=== PATIENT | female | born 1950 | race Caucasian/White ===

== ENCOUNTER 2017-01-01 14:22 | Emergency (ER) | payer MEDICARE, OTHER ==
[2017-01-01 14:31] VITALS: BMI 34.7
--- NOTE | 2017-01-01 15:58 | PDOC ---
History of Present Illness - General Chief Complaint: Lightheaded Stated Complaint: Lightheaded Time Seen by Provider: 01/01/17 15:10 History Source: Patient, Family (Son) Exam Limitations: Language Barrier (Son was translating) - History of Present Illness Initial Comments: 01/01/17 15:50 The patient is a 66F with a PMH of HTN, hyperlipidemia, who presents to the ED with ear pain and dizziness. The patient stated that she had a cold 9 days ago, which she "mostly" recovered from. She had a productive cough with yellow sputum. Her ear pain developed 3 days ago while at home. She describes the ear pain as a fullness/pressure, bilaterally. This morning, she states that she woke up feeling dizzy, almost like she was drunk. She currently feels lightheaded. The patient also complained of chest pain associated with her cough. The CP is substernal, does not radiate, not associated with nausea, sweating, jaw or arm pain. ROS+: cough, sputum production (yellow), ear pain/fullness, photophobia, normal BM ROS-: SOB, fever, chills, vomiting, diarrhea, constipation, dysuria, wheezing, night sweats, weight change, numbness, weakness, tingling, hearing loss, tinnitus PSH: gallbladder removal Allergies: NKDA Social: Does not smoke, drink, or use recreational drugs. Past History - Past Medical History Allergies/Adverse Reactions: Allergies Allergy/AdvReac Type Severity Reaction Status Date / Time No Known Allergies Allergy Verified 01/01/17 14:31 Home Medications: Ambulatory Orders Atenolol [Tenormin -] 100 mg PO DAILY 01/01/17 Clopidogrel Bisulfate [Plavix -] 75 mg PO DAILY 01/01/17 Dexlansoprazole [Dexilant] 60 mg PO DAILY 01/01/17 Olmesartan Medoxomil [Benicar (Nf)] 40 mg PO DAILY 01/01/17 HTN: Yes Hypercholesterolemia: Yes - Surgical History Cholecystectomy: Yes - Psycho/Social/Smoking Cessation Hx Anxiety: No Suicidal Ideation: No Smoking History: Never smoked Hx Alcohol Use: No Drug/Substance Use Hx: No Substance Use Type: None Review of Systems - Review of Systems Able to Perform ROS?: Yes (Son was translating.) Is the patient limited [place]an proficient: Yes Constitutional: Yes: Weight Stable. No: Chills, Diaphoresis, Fever, Night Sweats HEENTM: Yes: Ear Pain (Fullness). No: Eye Pain, Ear Discharge, Tinnitus, Hearing Loss Respiratory: Yes: Cough, Productive cough. No: Shortness of Breath, Wheezing Cardiac (ROS): Yes: Chest Pain, Lightheadedness ABD/GI: No: Constipated, Diarrhea, Nausea, Vomiting, Other (Abd pain) : No: Dysuria, Pain Neurological: No: Headache, Numbness, Paresthesia, Tingling, Weakness *Physical Exam - Vital Signs Last Vital Signs Temp Pulse Resp BP Pulse Ox 97.8 F 65 20 128/57 97 01/01/17 14:25 01/01/17 14:25 01/01/17 14:25 01/01/17 14:25 01/01/17 14:25 - Physical Exam General Appearance: Yes: Appropriately Dressed, Obese HEENT: positive: Photophobia, TM Bulging. negative: Rhinorrhea, Hearing Decreased Respiratory/Chest: positive: Chest Tender, Normal Breath Sounds. negative: Respiratory Distress, Accessory Muscle Use Cardiovascular: positive: Regular Rhythm, Regular Rate, S1, S2 Gastrointestinal/Abdominal: positive: Soft. 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 negative: Facial Droop, Numbness, Confused, Disoriented Heart Score/ECG Review - Electrocardiogram EKG: Normal - Age Age: >/= 65 - Risk Factors Risk Factors Heart Score: Yes Hx Hypercholesterolemia, Yes Hx Hypertension Based on the list above the patient has:: 1-2 risk factors - ECG Intrepretation Rhythm: Regular Rhythm - [place]: Normal - ECG Impressions Normal ECG: Yes Medical Decision Making - Medical Decision Making 01/01/17 16:16 Patient is a 66F with a PMH of HTN, hypercholesterolemia, who presents to the ED with dizziness and b/l ear pain x3 days after a cold. The most likely dx is labrynthitis. Meclazine was ordered for control of dizziness. Attending saw patient at bedside with me and agrees with plan. 01/01/17 16:55 Patient states she is feeling much better. Ready for d/c. Script of meclazine sent to her pharmacy and she is aware of this. *DC/Admit/Observation/Transfer Diagnosis at time of Disposition: Labyrinthitis - Discharge Dispostion Disposition: HOME Condition at time of disposition: Good Admit: No - Patient Instructions Printed Discharge Instructions: Vertigo Print Language: EGYPTIAN - Attestations Physician Attestion: 01/01/17 16:56 I, Dr. Renato Singh, attest that this document has been prepared under my direction and personally reviewed by me in its entirety. I further attest, that it accurately reflects all work, treatment, procedures and medical decision -making performed by me.
[2017-01-01] MEDS ORDERED: MECLIZINE HCL 25 MG TABLET (FP) PO ONE (16:13)
[2017-01-01] MEDS ORDERED: MECLIZINE HCL 25 MG TABLET (FP) ONE (16:14)
--- NOTE | 2017-01-01 16:14 | PDOC ---
Attending Attestation - Resident Resident Name: Renato Singh - ED Attending Attestation I have performed the following: I have examined & evaluated the patient, The case was reviewed & discussed with the resident, I agree w/resident's findings & plan, Exceptions are as noted - HPI HPI: 66 yo F history HTN, HL presents with B/L ear pain. She states that she had a recent upper respiratory infection. She has had lingering ear pain since the infection, which started 9 days ago. She has had ear pain for 3 days. Sensation of fullness and pressure in her ears. No drainage. She compares the sensation to being on an airplane and needing to clear her ears from the pressure. This morning, she states that she woke up feeling extremely dizzy, as if she were drunk. Symptoms are mostly improved, she only has some lightheadedness at present. Denies cp, headache, weakness, numbness, vision changes, hearing changes. - Physicial Exam PE: GENERAL: Awake, alert, and fully oriented, in no acute distress HEAD: No signs of trauma EYES: PERRLA, EOMI, sclera anicteric, conjunctiva clear ENT: Auricles normal inspection, hearing grossly normal, nares patent, oropharynx clear without exudates. Moist mucosa. TMs with clear effusions B/L. Slight area of erythema to the most superior part of the TMs B/L. NECK: Normal ROM, supple, no lymphadenopathy, JVD, or masses LUNGS: Breath sounds equal, clear to auscultation bilaterally. No wheezes, and no crackles HEART: Regular rate and rhythm, normal S1 and S2, no murmurs, rubs or gallops ABDOMEN: Soft, nontender, normoactive bowel sounds. No guarding, no rebound. No masses EXTREMITIES: Normal range of motion, no edema. No clubbing or cyanosis. No cords , erythema, or tenderness NEUROLOGICAL: Cranial nerves II through XII grossly intact. Normal speech, normal gait. Motor and sensation intact. Patricio-Hallpike negative, no nystagmus. SKIN: Warm, Dry, normal turgor, no rashes or lesions noted. - Medical Decision Making Pt asymptomatic at present, however, in light of the recent URI, suspect this is likely a labyrinthitis. She was given a trial of meclizine in the ED, no longer lightheaded. Neuro exam is wnl. Findings in the TMs would be consistent with recent URI. CVA considered unlikely based on clinical presentation and lack of neuro findings. Stable for DC home.
[2017-01-01 17:12] VITALS: BP 145/71; PULSE 77; TEMP 98.1
--- NOTE | 2017-01-02 11:23 | EKG ---
Test Reason : Blood Pressure : / mmHG Vent. Rate : 062 BPM Atrial Rate : 062 BPM P-R Int : 162 ms QRS Dur : 088 ms QT Int : 412 ms P-R-T Axes : 076 021 026 degrees QTc Int : 418 ms NORMAL SINUS RHYTHM NORMAL ECG NO PREVIOUS ECGS AVAILABLE Confirmed by CAROLA THOMAS MD ([id number]) on 01/02/2017 11:22:34 AM Referred By: Confirmed By:CAROLA THOMAS MD
== END 2017-01-01 17:12 | disposition home or self-care (01) ==
LOC: JER 14:22
DX: H83.03 Labyrinthitis, bilateral (principal); I10 Essential (primary) hypertension; E78.00 Pure hypercholesterolemia, unspecified; E78.5 Hyperlipidemia, unspecified
CPT/HCPCS: 93005; 93010; 99283-25

== ENCOUNTER 2023-03-15 05:24 | Emergency (ER) | payer OTHER ==
[2023-03-15 05:41] VITALS: TEMP 98.2; BMI 32.3
[2023-03-15 06:43] LABS: VENOUS BASE EXCESS -0.3 mmol/L (-2-2); VENOUS O2 SATURATION 80.6 % (70-80); VENOUS PCO2 48.1 mmHg (38-52); VENOUS PH 7.349 (7.310-7.410)
[2023-03-15 07:01] LABS: BASO % 1.3 % (0-2.0); EOS % 4.1 % (0-4.5); HEMATOCRIT 38.6 % (32.4-45.2); LYMPH % 26.1 % (8-40); MCH 32.5 pg (25.7-33.7); MCHC 33.7 g/dl (32.0-36.0); MEAN CELL VOLUME 96.5 fl (80-96); MEAN PLT VOLUME 9.2 fl (7.5-11.1); MONO % 7.7 % (3.8-10.2); NEUT % 60.8 % (42.8-82.8); PLATELET COUNT 309 10^3/uL (134-434); RDW 14.5 % (11.6-15.6); WHITE BLOOD COUNT 6.1 K/mm3 (4.0-10.0)
[2023-03-15 07:26] LABS: CHLORIDE 102 mmol/L (98-107); SODIUM 131 mmol/L (136-145)
[2023-03-15 07:28] LABS: CALCIUM 8.8 mg/dL (8.5-10.1)
[2023-03-15 07:30] LABS: ALBUMIN 3.4 g/dl (3.4-5.0); CO2 27 mmol/L (21-32); GLUCOSE,RANDOM 114 mg/dL (74-106)
[2023-03-15 07:32] LABS: CREATININE 1.4 mg/dL (0.55-1.3)
[2023-03-15 07:33] LABS: BILIRUBIN,TOTAL 0.5 mg/dL (0.2-1); TOT PROT 8.5 g/dl (6.4-8.2)
[2023-03-15 07:34] LABS: BLOOD UREA NITROGEN 23.6 mg/dL (7-18)
[2023-03-15 07:36] LABS: ALK PHOS 103 U/L (45-117)
[2023-03-15 08:09] LABS: N-TERMINAL BNP 119.8 pg/ml (5-450)
[2023-03-15 08:11] LABS: ANION GAP 2 MMOL/L (8-16); POTASSIUM > 10.0 mmol/L (3.5-5.1); SGOT/AST 107 U/L (15-37); SGPT/ALT 29 U/L (13-61)
[2023-03-15 09:47] LABS: POTASSIUM 5.2 mmol/L (3.5-5.1)
[2023-03-15 09:49] LABS: CALCIUM 9.8 mg/dL (8.5-10.1)
[2023-03-15 09:52] LABS: CREATININE 1.3 mg/dL (0.55-1.3)
[2023-03-15 11:16] VITALS: BP 139/78; PULSE 62; RESP 16
== END 2023-03-15 11:00 | disposition left against medical advice (07) ==
LOC: JER 05:24
DX: R06.02 Shortness of breath (principal); Z20.822 Contact with and (suspected) exposure to COVID-19
CPT/HCPCS: 0241U-QW; 36415; 71045-TC-FY; 80048; 80053; 82803; 83880; 84484; 85025; 93005; 93010; 99285-25